=== PATIENT | male | born 1975 | race Caucasian/White ===

== ENCOUNTER 2016-09-27 12:46 | Emergency (ER) | payer OTHER ==
[~2016-09-27] VITALS: Ht 180.3 cm; Wt 132.0 kg
[~2016-09-27 12:46] MED LIST: ALBUTEROL INH; ASPI-1035 PO; ATOR20TA PO; BENA20TA3 PO; METF500T4 PO
[2016-09-27 13:11] VITALS: BP 150/96
== END 2016-09-27 17:46 | disposition left against medical advice (07) ==
LOC: ER 12:46
DX: R10.9 Unspecified abdominal pain (principal); Z53.21 Procedure and treatment not carried out due to patient leaving prior to being seen by health care provider

== ENCOUNTER 2017-04-23 23:34 | Emergency (ER) | payer OTHER ==
[~2017-04-23] VITALS: Ht 180.3 cm; Wt 122.0 kg
[~2017-04-23 23:34] MED LIST changes: -ASPI-1035 PO; +ASPI-1159 PO
[2017-04-24] MEDS ORDERED: ALBUTEROL (0.083%) 2.5MG/3ML NEB HHN STA (02:05)
[2017-04-24] MEDS ORDERED: PREDNISONE 20MG TABLET PO STA (02:05)
[2017-04-24] MEDS ORDERED: IPRATROPIUM BROMIDE (0.02%) 0.5MG/2.5ML NEB HHN STA (02:05)
[2017-04-24] MEDS ORDERED: METHYLPREDNISOLONE SOD SUCC 125 MG/2 ML VIAL IV STA (02:17)
[2017-04-24] MEDS ORDERED: PEN G BENZ/PEN G PROCAINE CR 1.2 MMU/2 ML IM ONE (02:30)
[2017-04-24] MEDS ORDERED: PENICILLIN G BENZATHINE 1,200,000 UNITS/2ML SYR IM ONE (02:45)
[2017-04-24 03:14] VITALS: BP 133/88
== END 2017-04-24 04:28 | disposition home or self-care (01) ==
LOC: ER 04-24 00:10
DX: J02.9 Acute pharyngitis, unspecified (principal); J45.901 Unspecified asthma with (acute) exacerbation; I10 Essential (primary) hypertension; E11.9 Type 2 diabetes mellitus without complications; E66.9 Obesity, unspecified; Z68.37 Body mass index [BMI] 37.0-37.9, adult; Z79.82 Long term (current) use of aspirin
CPT/HCPCS: 71010; 87430; 94640; 96372; 96374; 99285; J0558; J0561; J2930; J7611; Z7610

== ENCOUNTER 2017-06-25 00:18 | Emergency (ER) | payer SELFPAY ==
[~2017-06-25] VITALS: Ht 180.3 cm; Wt 212.1 kg
[2017-06-25 03:26] VITALS: BP 177/102
[2017-06-25] MEDS ORDERED: BENAZEPRIL 20MG TABLET PO SCH (05:45)
[2017-06-25] MEDS ORDERED: METFORMIN HCL 500MG TABLET PO SCH (05:45)
== END 2017-06-25 06:07 | disposition home or self-care (01) ==
LOC: ER 00:18
DX: S30.812A Abrasion of penis, initial encounter (principal); X58.XXXA Exposure to other specified factors, initial encounter; Y93.89 Activity, other specified; Y92.89 Other specified places as the place of occurrence of the external cause; I10 Essential (primary) hypertension; E11.65 Type 2 diabetes mellitus with hyperglycemia; Z79.84 Long term (current) use of oral hypoglycemic drugs; Z79.4 Long term (current) use of insulin; Z91.14 Patient's other noncompliance with medication regimen; E78.00 Pure hypercholesterolemia, unspecified; J45.909 Unspecified asthma, uncomplicated; Z79.82 Long term (current) use of aspirin
CPT/HCPCS: 82962; 99283

== ENCOUNTER 2017-11-14 20:25 | Emergency (ER) | payer MEDICAID, OTHER ==
[~2017-11-14] VITALS: Ht 180.3 cm; Wt 121.1 kg
[~2017-11-14 20:25] MED LIST changes: -METF500T4 PO; +METF500T6 PO
[2017-11-14 22:00] VITALS: BP 165/82
== END 2017-11-15 01:33 | disposition left against medical advice (07) ==
LOC: ER 20:25
DX: Z53.21 Procedure and treatment not carried out due to patient leaving prior to being seen by health care provider (principal); E11.9 Type 2 diabetes mellitus without complications; I10 Essential (primary) hypertension; F17.200 Nicotine dependence, unspecified, uncomplicated

== ENCOUNTER 2018-03-05 20:01 | Emergency (ER) | payer OTHER ==
[~2018-03-05] VITALS: Ht 180.3 cm; Wt 118.0 kg
[~2018-03-05 20:01] MED LIST changes: +BENA20TA10 PO; -BENA20TA3 PO; +METF-414 PO; -METF500T6 PO
[2018-03-05 23:30] LABS: BASOPHILS % 0.7 % (0.0-2.0); CHLORIDE 104 mEq/L (98-107); HEMATOCRIT. 47.9 % (42.0-52.0); HEMOGLOBIN. 16.4 g/dL (14.0-18.0); LYMPHOCYTES % 22.7 % (20.0-50.0); MEAN CORPUSCULAR HEMOGLOBIN 29.3 pg (28.0-32.0); MEAN CORPUSCULAR VOLUME 85.3 fL (80.0-94.0); MEAN PLATELET VOLUME 8.7 fl (7.4-10.4); MONOCYTES % 6.3 % (2.0-8.0); NEUTROPHILS % 68.3 % (40.0-76.0); PLATELET 222 x1000/uL (130-400); RED BLOOD CELL COUNT 5.61 mill/uL (4.7-6.1)
[2018-03-06] MEDS ORDERED: ALBUTEROL (0.083%) 2.5MG/3ML NEB HHN STA (00:21)
[2018-03-06] MEDS ORDERED: PREDNISONE 20MG TABLET PO ONE (01:30)
[2018-03-06 01:56] VITALS: BP 145/84
== END 2018-03-06 01:50 | disposition home or self-care (01) ==
LOC: ER 20:01
DX: G51.0 Bell's palsy (principal); J45.901 Unspecified asthma with (acute) exacerbation; E11.9 Type 2 diabetes mellitus without complications; I10 Essential (primary) hypertension; F17.200 Nicotine dependence, unspecified, uncomplicated; Z98.890 Other specified postprocedural states
CPT/HCPCS: 36415; 70450; 71045; 80053; 85025; 93005; 94640; 99285; J7512; J7611

== ENCOUNTER 2018-11-28 19:07 | Emergency (ER) | payer OTHER ==
[~2018-11-28] VITALS: Ht 180.3 cm; Wt 123.0 kg
[~2018-11-28 19:07] MED LIST changes: -ASPI-1159 PO; +ASPI-1393 PO
[2018-11-28] MEDS ORDERED: SODIUM CHLORIDE 0.9% 1,000 ML IV ONE (22:19)
[2018-11-28] MEDS ORDERED: HYDROCODONE/ACETAMINOPHEN 5/325MG TABLET PO STA (22:19)
[2018-11-28] MEDS ORDERED: IBUPROFEN 600MG TABLET PO STA (22:19)
[2018-11-28 23:00] LABS: BASOPHILS % 0.9 % (0.0-2.0); HEMOGLOBIN. 15.5 g/dL (14.0-18.0); LYMPHOCYTES % 20.4 % (20.0-50.0); MEAN CORPUSCULAR HEMOGLOBIN 29.2 pg (28.0-32.0); MEAN CORPUSCULAR VOLUME 84.8 fL (80.0-94.0); MEAN PLATELET VOLUME 8.4 fl (7.4-10.4); MONOCYTES % 9.3 % (2.0-8.0); NEUTROPHILS % 65.4 % (40.0-76.0); PLATELET 198 x1000/uL (130-400); RED BLOOD CELL COUNT 5.31 mill/uL (4.7-6.1); RED CELL DISTRIBUTION WIDTH 12.5 % (11.6-14.6)
[2018-11-28 23:03] LABS: CHLORIDE 99 mEq/L (98-107)
[2018-11-29 02:35] VITALS: BP 130/75
[2018-11-29] MEDS ORDERED: IOHEXOL-300 100 ML BOTTLE ONE (02:53)
== END 2018-11-29 02:37 | disposition home or self-care (01) ==
LOC: ER 19:07
DX: H60.92 Unspecified otitis externa, left ear (principal); J32.9 Chronic sinusitis, unspecified; R25.3 Fasciculation; I10 Essential (primary) hypertension; E11.9 Type 2 diabetes mellitus without complications
CPT/HCPCS: 36415; 70487; 80053; 85025; 99284; J7030; Q9967; Z7610

== ENCOUNTER 2019-03-26 19:16 | Emergency (ER) | payer OTHER ==
[~2019-03-26] VITALS: Ht 180.3 cm; Wt 120.8 kg
[2019-03-26 19:36] VITALS: BP 167/98
== END 2019-03-26 23:45 | disposition left against medical advice (07) ==
LOC: ER 19:16
DX: R00.0 Tachycardia, unspecified (principal); Z53.21 Procedure and treatment not carried out due to patient leaving prior to being seen by health care provider

== ENCOUNTER → 2019-07-08 | Emergency (ER) | payer OTHER ==
[~2019-07-08] VITALS: Ht 180.3 cm; Wt 118.0 kg
[~2019-07-08] MED LIST changes: -ASPI-1393 PO; +ASPI-1497 PO
[2019-07-08 20:31] VITALS: BP 145/90
== END | disposition left against medical advice (07) ==
LOC: ER 20:11
DX: R42 Dizziness and giddiness (principal); M62.838 Other muscle spasm; R41.0 Disorientation, unspecified; H53.8 Other visual disturbances; Z53.21 Procedure and treatment not carried out due to patient leaving prior to being seen by health care provider
CPT/HCPCS: 82962

== ENCOUNTER 2019-11-09 03:15 | Inpatient (IN) | payer OTHER ==
[~2019-11-09] VITALS: Ht 180.3 cm; Wt 116.1 kg
[2019-11-09] MEDS ORDERED: ONDANSETRON HCL 4MG/2ML INJ IV STA (04:12)
[2019-11-09] MEDS ORDERED: NITROGLYCERIN OINT 1GM/INCH UDPKT TD ONE (04:15)
[2019-11-09 04:56] LABS: EOSINOPHILS % 1.8 % (0.0-5.0); HEMATOCRIT. 41.6 % (42.0-52.0); HEMOGLOBIN. 14.5 g/dL (14.0-18.0); LYMPHOCYTES % 22.4 % (20.0-50.0); MEAN CORPUSCULAR HEMOGLOBIN 29.5 pg (28.0-32.0); MEAN CORPUSCULAR VOLUME 84.8 fL (80.0-94.0); MEAN PLATELET VOLUME 8.9 fl (7.4-10.4); MONOCYTES % 5.5 % (2.0-8.0); NEUTROPHILS % 69.3 % (40.0-76.0); PLATELET 212 x1000/uL (130-400); RED BLOOD CELL COUNT 4.91 mill/uL (4.7-6.1); RED CELL DISTRIBUTION WIDTH 12.4 % (11.6-14.6)
[2019-11-09 05:04] LABS: CHLORIDE 102 mEq/L (98-107)
[2019-11-09] MEDS ORDERED: IOHEXOL-350 100 ML BOTTLE ONE (06:10)
[2019-11-09 08:00] VITALS: BP 112/56
[2019-11-09] MEDS ORDERED: ASPIRIN 81MG TABLET PO SCH (09:00)
[2019-11-09] MEDS ORDERED: ACETAMINOPHEN 325MG TABLET PO PRN (09:00)
[2019-11-09] MEDS ORDERED: METOPROLOL TARTRATE 25MG TABLET PO SCH (09:00)
[2019-11-09] MEDS ORDERED: ENOXAPARIN 30MG/0.3ML SYR SUBCUT SCH (09:00)
[2019-11-09] MEDS ORDERED: DEXTROSE 50% WATER 50ML SYRINGE IV PRN (09:00)
[2019-11-09] MEDS ORDERED: ONDANSETRON HCL 4MG/2ML INJ IV PRN (09:00)
[2019-11-09] MEDS: BLOOD SUGAR DIAGNOSTIC STRIP TEST SCH ×2 (09:49→12:42)
[2019-11-09] MEDS: INSULIN LISPRO 100 UNITS/ML SUBCUT SCH ×2 (09:49→12:42)
[2019-11-09 09:59] VITALS: BP 126/75
[2019-11-09 12:00] VITALS: BP 126/66
[2019-11-09] MEDS ORDERED: INSULIN LISPRO 100 UNITS/ML SUBCUT SCH (12:50)
[2019-11-09] MEDS ORDERED: INSULIN GLARGINE UD 100 UNITS/ML SYR SUBCUT NR (13:30)
[2019-11-09] MEDS ORDERED: INSULIN GLARGINE UD 100 UNITS/ML SYR SUBCUT SCH (22:00)
== END 2019-11-09 16:10 | disposition left against medical advice (07) | DRG 206 ==
LOC: ER 03:15 → 6WST 05:50 → ENRESERV 07:12
PROVIDERS: ADMIT Internal Medicine; ATTEND Internal Medicine
DX: M94.0 Chondrocostal junction syndrome [Tietze] (principal); E46 Unspecified protein-calorie malnutrition; E87.1 Hypo-osmolality and hyponatremia; J98.11 Atelectasis; E11.65 Type 2 diabetes mellitus with hyperglycemia; I10 Essential (primary) hypertension; G51.0 Bell's palsy; Z79.899 Other long term (current) drug therapy; Z79.82 Long term (current) use of aspirin; Z71.89 Other specified counseling; Z68.35 Body mass index [BMI] 35.0-35.9, adult
CPT/HCPCS: 36415; 71045; 71275; 80053; 82962; 83880; 84484; 85025; 93005; 99285; J1650; J1815; J2405; Q9967

== ENCOUNTER 2020-07-23 19:53 | Emergency (ER) | payer OTHER ==
[~2020-07-23] VITALS: Ht 180.3 cm; Wt 114.0 kg
[2020-07-23] MEDS ORDERED: ACETAMINOPHEN 325MG TABLET PO STA (20:23)
[2020-07-23 21:10] LABS: BASOPHILS % 0.6 % (0.0-2.0); EOSINOPHILS % 2.1 % (0.0-5.0); HEMATOCRIT. 44.2 % (42.0-52.0); HEMOGLOBIN. 14.9 g/dL (14.0-18.0); LYMPHOCYTES % 20.9 % (20.0-50.0); MEAN CORPUSCULAR VOLUME 82.9 fL (80.0-94.0); MEAN PLATELET VOLUME 8.4 fl (7.4-10.4); MONOCYTES % 5.7 % (2.0-8.0); NEUTROPHILS % 70.7 % (40.0-76.0); PLATELET 225 x1000/uL (130-400); RED BLOOD CELL COUNT 5.33 mill/uL (4.7-6.1); RED CELL DISTRIBUTION WIDTH 12.4 % (11.6-14.6)
[2020-07-23 21:17] LABS: CHLORIDE 100 mEq/L (98-107)
[2020-07-23 23:27] VITALS: BP 153/84
== END 2020-07-23 23:29 | disposition home or self-care (01) ==
LOC: ER 19:53
DX: R07.89 Other chest pain (principal); E11.65 Type 2 diabetes mellitus with hyperglycemia; I10 Essential (primary) hypertension; J45.909 Unspecified asthma, uncomplicated; Z79.899 Other long term (current) drug therapy; Z79.51 Long term (current) use of inhaled steroids; Z98.890 Other specified postprocedural states; R79.89 Other specified abnormal findings of blood chemistry
CPT/HCPCS: 36415; 71045; 80053; 84484; 85025; 93005; 99285